=== PATIENT | female | born 1955 | race Caucasian/White ===

== ENCOUNTER → 2016-07-04 09:58 | Outpatient (CLI) | payer OTHER | END | disposition home or self-care (01) | LOC: D.RAD 09:58 | DX: Z02.71 Encounter for disability determination (principal) ==

== ENCOUNTER → 2016-08-18 07:01 | Outpatient (CLI) | payer MEDICAID | END | disposition home or self-care (01) | LOC: D.US 08-12 08:00 | DX: N63 Unspecified lump in breast (principal) ==

== ENCOUNTER 2018-10-09 14:30 | Outpatient (CLI) | payer MEDICARE | END 2018-10-09 15:00 | disposition home or self-care (01) | LOC: D.MAMMO 14:30 | PROVIDERS: ATTEND Clinical Nurse Specialist Family Health | DX: Z12.31 Encounter for screening mammogram for malignant neoplasm of breast (principal) ==